=== PATIENT | female | born 1965 | race Caucasian/White ===

== ENCOUNTER 2016-08-01 18:05 | Emergency (ER) | payer BC ==
[2016-08-01 18:27] VITALS: BP 122/77
--- NOTE | 2016-08-01 18:44 | UC ---
Knee Pain HPI - HPI Summary HPI Summary: right knee pain x 2 days pain is in medial aspect of the right knee, no known injury pain is interment lasting for few seconds no swelling, mild erythema of the area - History of Current Complaint Chief Complaint: UCLowerExtremity Stated Complaint: RT KNEE PAIN Time Seen by Provider: 08/01/16 18:25 Hx Obtained From: Patient Hx Last Menstrual Period: Perimenopausal ?: No Onset/Duration: Gradual Onset, Lasting Days - 2, Still Present Severity Initially: Moderate Severity Currently: Moderate Aggravating Factor(s): Nothing Alleviating Factor(s): Nothing Associated Signs And Symptoms: Negative: Swelling, Redness, Bruising, Fever, Weakness, Numbness, Tingling - Allergies/Home Medications Allergies/Adverse Reactions: Allergies Allergy/AdvReac Type Severity Reaction Status Date / Time Penicillins Allergy Rash Verified 08/01/16 18:21 Home Medications: Home Medications NK [No Home Medications Reported] 08/01/16 [History Confirmed 08/01/16] PMH/Surg Hx/FS Hx/Imm Hx Previously Healthy: Yes - Surgical History Surgical History: Yes Surgery Procedure, Year, and Place: anal vaginal fistula - Family History Known Family History: Negative: Diabetes - Social History Alcohol Use: Rare Substance Use Type: None Smoking Status (MU): Light Every Day Tobacco Smoker Type: Cigarettes Amount Used/How Often: 5 ciagrettes daily Length of Time of Smoking/Using Tobacco: 34 Years Have You Smoked in the Last Year: Yes When Did the Patient Quit Smoking/Using Tobacco: has been cutting down - Immunization History Most Recent Influenza Vaccination: Not the Season Review of Systems Constitutional: Negative Skin: Negative Eyes: Negative ENT: Negative Musculoskeletal: Arthralgia - right knee pain All Other Systems Reviewed And Are Negative: Yes Physical Exam Triage Information Reviewed: Yes Appearance: Well-Appearing, No Pain Distress, Well-Nourished Vital Signs: Initial Vital Signs Temp 98.7 F 08/01/16 18:21 Pulse 96 08/01/16 18:21 Resp 18 08/01/16 18:21 BP 122/77 08/01/16 18:21 Pulse Ox 99 08/01/16 18:21 Eye Exam: Normal Eyes: Positive: Conjunctiva Clear ENT Exam: Normal ENT: Positive: Normal ENT inspection, Hearing grossly normal, Pharynx normal Neck exam: Normal Respiratory Exam: Normal Respiratory: Positive: Chest non-tender, Lungs clear, Normal breath sounds, No respiratory distress Cardiovascular: Positive: RRR, No Murmur, Pulses Normal Musculoskeletal: Positive: Other: - right knee: no swelling, no effusion , no tenderness, good ROM on flexion and extension ligaments are stable Knee Pain Course/Dx - Differential Dx/Diagnosis Provider Diagnoses: right knee pain Discharge - Discharge Plan Condition: Stable Disposition: HOME Patient Education Materials: Knee Pain (ED) Referrals: Non Staff,Doctor [Primary Care Provider] - 7 Days Additional Instructions: your exam is normal for any any ligament injury and normal for meniscus injury most likely sprain / strain or a pinch nerve cont. with rest , ice, elevation , may take ibuprofen as needed for pain follow up with your pcp in one week if not better
== END 2016-08-01 18:59 | disposition home or self-care (01) ==
LOC: UCCORT 18:05
DX: M25.561 Pain in right knee (principal); Z88.0 Allergy status to penicillin; F17.210 Nicotine dependence, cigarettes, uncomplicated
CPT/HCPCS: 99211; G0463

== ENCOUNTER 2017-01-25 14:14 | Emergency (ER) | payer BC ==
--- NOTE | 2017-01-25 14:55 | UC ---
Complaint Female HPI - HPI Summary HPI Summary: 51 y/o female presents to the urgent care c/o urinary frequency and suprapubic pressure since yesterday. Pt thinks she has a UTI since symptoms are similar. Pt has not taking anything to alleviate symptoms. She has noticed a mild white vaginal discharge for the past 3 days since she changed soap. Pt denies, pain, fever, lower back pain, abdominal pain, N/V/D. - History Of Current Complaint Stated Complaint: URINARY Time Seen by Provider: 01/25/17 14:44 Hx Obtained From: Patient Hx Last Menstrual Period: Perimenopausal ?: No Onset/Duration: Gradual Onset, Lasting Days - 1 day, Still Present Timing: Intermittent, Lasting Minutes Severity Initially: Mild Severity Currently: Mild Pain Intensity: 0 Pain Scale Used: 0-10 Numeric Character: Dull - pressure like Aggravating Factor(s): Urination Alleviating Factor(s): Nothing Associated Signs And Symptoms: Positive: Negative. Negative: Fever, Back Pain, Vaginal Bleeding/Discharge, Genital Swelling - Risk Factors Ectopic Risk Factor: Negative - Allergies/Home Medications Allergies/Adverse Reactions: Allergies Allergy/AdvReac Type Severity Reaction Status Date / Time Penicillins Allergy Rash Verified 01/25/17 14:57 PMH/Surg Hx/FS Hx/Imm Hx Previously Healthy: Yes - Pt denies PMHX - Surgical History Surgical History: Yes Surgery Procedure, Year, and Place: anal vaginal fistula - Family History Known Family History: Positive: None - Pt denies FMHX Negative: Diabetes - Social History Occupation: Employed Full-time Lives: With Family Alcohol Use: Rare Substance Use Type: None Smoking Status (MU): Light Every Day Tobacco Smoker Type: Cigarettes Amount Used/How Often: 5 ciagrettes daily Length of Time of Smoking/Using Tobacco: 34 Years Have You Smoked in the Last Year: Yes When Did the Patient Quit Smoking/Using Tobacco: has been cutting down - Immunization History Most Recent Influenza Vaccination: Not the 2015/2016 Season Review of Systems Constitutional: Negative Skin: Negative Eyes: Negative ENT: Negative Respiratory: Negative Cardiovascular: Negative Gastrointestinal: Negative Genitourinary: Frequency, Urgency Motor: Negative Neurovascular: Negative Musculoskeletal: Negative Neurological: Negative Psychological: Negative Is Patient Immunocompromised?: No All Other Systems Reviewed And Are Negative: Yes Physical Exam Triage Information Reviewed: Yes - Additional Comments VITAL SIGNS: Reviewed. GENERAL: Patient is a well developed and nourished female who is sitting comfortable in the examining table. Patient is not in any acute respiratory distress. HEAD AND FACE: No signs of trauma. No ecchymosis, hematomas or skull depressions. No sinus tenderness. EYES: PERRLA, EOMI x 2, No injected conjunctiva, clear watery eyes, no nystagmus. No photophobia. EARS: Hearing grossly intact. Ear canals and tympanic membranes are within normal limits. MOUTH: pharynx with no erythema, no exudates,no palatal petechiae. no B/L tonsillar enlargement Uvula in midline. NECK: Supple, trachea is midline, no lymphadenopathy, no JVD, no carotid bruit, no c-spine tenderness, neck with full ROM. CHEST: Symmetric, no tenderness at palpation LUNGS: Clear to auscultation bilaterally. No wheezing or crackles. CVS: Regular rate and rhythm, S1 and S2 present, no murmurs or gallops appreciated. ABDOMEN: Soft, non-tender. No signs of distention. No rebound no guarding, and no masses palpated. Bowel sounds are normal. BACK:no scoliosis or lesions, non tender to palaption, No B/L CVA tenderness EXTREMITIES: FROM in all major joints, no edema, no cyanosis or clubbing. NEURO: Alert and oriented x 3. No acute neurological deficits. Speech is normal and follows commands. SKIN: Dry and warm Complaint Female Dx - Course Course Of Treatment: 51 y/o female presents to the urgent care c/o urinary frequency and suprapubic pressure since yesterday. Pt thinks she has a UTI since symptoms are similar. Pt has not taking anything to alleviate symptoms. She has noticed a mild white vaginal discharge for the past 3 days since she changed soap. Pt denies, pain, fever, lower back pain, vaginal discharge, abdominal pain, N/V/D. Hx obtained. PE: WNL. UA and test ordered. UA results: trace of ketones. Pt declines pelvic examination. Pt with Dysuria and probably BV since she reently changed soaps. Pt Rx Pyridium 100mg PO TID x 2 days for Dysuria. Advised to increase fluid intake. Rx Metronidazole vaginal cream to Tx BV. Pt advised If symptoms do not improve to return to the urgent care or f/u with PCP. Pt understood and agreed. Left the clinic ambulating. - Differential Dx/Diagnosis Differential Diagnosis/HQI/PQRI: Cervicitis, Pelvic Inflammatory Disease, Ureteral Stone, Urinary Tract Infection, Other - dysuria Provider Diagnoses: 1- Dysuria. 2- Bacterial Vaginosis Discharge - Discharge Plan Condition: Stable Disposition: HOME Prescriptions: metroNIDAZOLE VAGINAL 0.75%* 1 applic VAGINAL BEDTIME #1 melissa Phenazopyridine TAB* [Pyridium 100 mg TAB*] 100 mg PO TID #6 tab Patient Education Materials: Bacterial Vaginosis (ED), Dysuria (ED) Referrals: [facility] [Outside] - If Needed Additional Instructions: 1- Please take Pyridium 100 mg PO TID x 2 days to alleviate urinary symptoms. Increase increase fluid intake. drink cranberry juice. 2-Apply Metronidazole topical cream as directed for Bacterial Vaginosis 3-If symptoms do not improve please return to the urgent care or f/u with PCP for further evaluation and treatment
[2017-01-25 14:57] VITALS: BP 106/70
== END 2017-01-25 15:31 | disposition home or self-care (01) ==
LOC: UCCORT 14:14
DX: N76.0 Acute vaginitis (principal); R30.0 Dysuria; Z88.0 Allergy status to penicillin; F17.210 Nicotine dependence, cigarettes, uncomplicated
CPT/HCPCS: 81003; 99212; G0463

== ENCOUNTER 2017-06-22 17:22 | Emergency (ER) | payer BC ==
[2017-06-22 17:49] VITALS: BP 124/84
[2017-06-22] MEDS ORDERED: Azithromycin TAB* 250 MG PO ONE (18:14)
[2017-06-22] MEDS ORDERED: Albuterol HFA INHALER* 8 gm MDI INH ONE (18:15)
--- NOTE | 2017-09-16 08:46 | UC ---
UC General HPI - HPI Summary HPI Summary: had a cold several weeks ago, sx resolved then reoccurred 4 days ago--c/o lingering cough, cough is productive of yellow phlegm, "slight wheezing" No GI issues. No rash. Not getting better, wants to get checked. - History of Current Complaint Chief Complaint: UCGeneralIllness Stated Complaint: UPPER RESPIRATORY Time Seen by Provider: 06/22/17 17:55 Hx Obtained From: Patient Hx Last Menstrual Period: Perimenopausal Pain Intensity: 0 - Allergy/Home Medications Allergies/Adverse Reactions: Allergies Allergy/AdvReac Type Severity Reaction Status Date / Time Penicillins Allergy Intermediate Rash Verified 06/22/17 17:49 PMH/Surg Hx/FS Hx/Imm Hx Previously Healthy: Yes - Surgical History Surgical History: Yes Surgery Procedure, Year, and Place: anal vaginal fistula - Family History Known Family History: Positive: None - Pt denies FMHX Negative: Diabetes - Social History Alcohol Use: None Substance Use Type: None Smoking Status (MU): Light Every Day Tobacco Smoker Type: Cigarettes Amount Used/How Often: 5 ciagrettes daily Length of Time of Smoking/Using Tobacco: 34 Years Have You Smoked in the Last Year: Yes When Did the Patient Quit Smoking/Using Tobacco: has been cutting down - Immunization History Most Recent Influenza Vaccination: Not the 2014/2015 Season Review of Systems Constitutional: Fatigue Skin: Negative Eyes: Negative ENT: Negative Respiratory: Cough Cardiovascular: Negative Gastrointestinal: Negative Genitourinary: Negative Motor: Negative Neurovascular: Negative Musculoskeletal: Negative Neurological: Negative Psychological: Negative Is Patient Immunocompromised?: No All Other Systems Reviewed And Are Negative: Yes Physical Exam Triage Information Reviewed: Yes Appearance: Well-Nourished Vital Signs: Initial Vital Signs Temp 98.5 F 06/22/17 17:40 Pulse 90 06/22/17 17:40 Resp 18 06/22/17 17:40 BP 124/84 06/22/17 17:40 Pulse Ox 98 06/22/17 17:40 Vital Signs Reviewed: Yes Eye Exam: Normal ENT: Positive: Pharyngeal erythema - mild post pharyng redness, no sores / exudates, TM dull Neck exam: Normal Neck: Positive: Supple, Nontender, No Lymphadenopathy Respiratory Exam: Other - + rhonchorus cough, scattered exp wheeze Respiratory: Positive: No respiratory distress, No accessory muscle use Cardiovascular Exam: Normal Cardiovascular: Positive: RRR, No Murmur, Brisk Capillary Refill Abdominal Exam: Normal Abdomen Description: Positive: Nontender Neurological Exam: Normal - moves x 4 exts, gait steady Psychological Exam: Normal - conversing easily and appropriately Skin Exam: Normal - no visible or reported rash Course/Dx - Course Course Of Treatment: Reviewed coa / tx plan. Questions as posed answered to the best of my ability. - Differential Dx - Multi-Symptom Provider Diagnoses: Bronchitis. wheezing Discharge - Sign-Out/Discharge Documenting (check all that apply): Patient Departure - Discharge Plan Condition: Stable Disposition: HOME Prescriptions: Albuterol HFA INHALER* [Ventolin HFA Inhaler*] 1 - 2 puff INH Q4H PRN #1 mdi PRN Reason: Wheezing Azithromycin TAB* [Zithromax TAB (Z-SHELBY) 250 mg #6 tabs] 250 mg PO DAILY #4 tab Patient Education Materials: Acute Bronchitis (ED), Wheezing (ED) Referrals: Reinaldo Olmedo MD [Primary Care Provider] - Additional Instructions: Follow up with Dr. Olmedo within the next month for respiratory recheck. Seek medical attention for worse or new problems in the meantime. Drink plenty of water. - Billing Disposition and Condition Condition: STABLE Disposition: Home
== END 2017-06-22 18:36 | disposition home or self-care (01) ==
LOC: UCCORT 17:22
DX: J40 Bronchitis, not specified as acute or chronic (principal); R06.2 Wheezing; Z88.0 Allergy status to penicillin; F17.210 Nicotine dependence, cigarettes, uncomplicated
CPT/HCPCS: 99212; A9270-GY; G0463

== ENCOUNTER 2017-12-24 13:33 | Emergency (ER) | payer BC ==
[2017-12-24 15:07] VITALS: BP 103/85
--- NOTE | 2017-12-24 15:26 | UC ---
Throat Pain/Nasal Coy HPI - HPI Summary HPI Summary: 52-year-old woman here with chest congestion chills sputum production for one week. Initially the sputum was clear. Now her sputum starting yellow getting darker. She's been taking [id number] preparations which helped briefly but then things are getting worse overall. No chest pain she is not a smoker. No fevers. - History of Current Complaint Chief Complaint: UCGeneralIllness Stated Complaint: COUGH,CONGESTION,ROCHA Time Seen by Provider: 12/24/17 15:12 Hx Last Menstrual Period: Perimenopausal Pain Intensity: 0 - Allergies/Home Medications Allergies/Adverse Reactions: Allergies Allergy/AdvReac Type Severity Reaction Status Date / Time Penicillins Allergy Intermediate Rash Verified 12/24/17 15:03 PMH/Surg Hx/FS Hx/Imm Hx Previously Healthy: Yes - Surgical History Surgical History: Yes Surgery Procedure, Year, and Place: anal vaginal fistula - Family History Known Family History: Positive: None - Pt denies FMHX Negative: Diabetes - Social History Alcohol Use: Rare Substance Use Type: None Smoking Status (MU): Former Smoker Type: Cigarettes Amount Used/How Often: 5 ciagrettes daily Length of Time of Smoking/Using Tobacco: 34 Years Have You Smoked in the Last Year: Yes When Did the Patient Quit Smoking/Using Tobacco: has been cutting down - Immunization History Most Recent Influenza Vaccination: Not the Season Review of Systems Constitutional: Negative Skin: Negative Eyes: Negative ENT: Sore Throat, Nasal Discharge, Sinus Congestion Respiratory: Cough Cardiovascular: Negative Gastrointestinal: Negative Motor: Negative Neurovascular: Negative Musculoskeletal: Negative Neurological: Negative Psychological: Negative Is Patient Immunocompromised?: No All Other Systems Reviewed And Are Negative: Yes Physical Exam Triage Information Reviewed: Yes Appearance: No Pain Distress, Well-Nourished, Ill-Appearing - MILD Vital Signs: Initial Vital Signs Temp 98 F 12/24/17 15:01 Pulse 92 12/24/17 15:01 Resp 16 12/24/17 15:01 BP 103/85 12/24/17 15:01 Pulse Ox 98 12/24/17 15:01 Vital Signs Reviewed: Yes Eye Exam: Normal Eyes: Positive: Conjunctiva Clear ENT: Positive: Pharyngeal erythema, Nasal congestion, Nasal drainage, TMs normal Neck exam: Normal Neck: Positive: Supple Respiratory: Positive: Lungs clear, Normal breath sounds, No respiratory distress Cardiovascular: Positive: RRR Musculoskeletal Exam: Normal Musculoskeletal: Positive: Strength Intact, ROM Intact Neurological Exam: Normal Neurological: Positive: Alert Psychological Exam: Normal Psychological: Positive: Age Appropriate Behavior Skin Exam: Normal Throat Pain/Nasal Course/Dx - Course Course Of Treatment: DISCUSSED VIRAL VERSES BACTERIAL INFECTION AND THE ROLE OF ANTIBIOTICS. THE PATIENT WISHES TO BE ON ANTIBIOTICS AT THIS TIME. - Differential Dx/Diagnosis Provider Diagnoses: BRONCHITIS Discharge - Sign-Out/Discharge Documenting (check all that apply): Patient Departure All imaging exams completed and their final reports reviewed: No Studies - Discharge Plan Condition: Stable Disposition: HOME Prescriptions: Azithromyxin SHELBY (NF) [Z-Shelby (Zithromax) 250 mg tabs #6] 2 tab PO .TODAY, THEN 1 DAILY #6 tab Patient Education Materials: Acute Bronchitis (ED) Referrals: Reinaldo Olmedo MD [Primary Care Provider] - Additional Instructions: FOLLOW UP WITH YOUR DOCTOR IF NOT COMPLETELY IMPROVED. GET RECHECKED FOR ANY WORSENING OF YOUR CONDITION OR QUESTIONS OR CONCERNS. - Billing Disposition and Condition Condition: STABLE Disposition: Home
== END 2017-12-24 15:39 | disposition home or self-care (01) ==
LOC: UCCORT 13:33
DX: J40 Bronchitis, not specified as acute or chronic (principal); Z87.891 Personal history of nicotine dependence; Z88.0 Allergy status to penicillin
CPT/HCPCS: 99212; G0463

== ENCOUNTER 2018-10-02 16:13 | Emergency (ER) | payer BC, OTHER ==
[2018-10-02 17:40] VITALS: BP 119/74
--- NOTE | 2018-10-02 18:07 | UC ---
Laceration HPI - HPI Summary HPI Summary: 53 year old female cut herself with a gill box tender on her left forearm. Denies numbness nor radiation of pain. - History Of Current Complaint Chief Complaint: UCLaceration Stated Complaint: WC - LEFT ARM LACERATION Time Seen by Provider: 10/02/18 17:34 Hx Obtained From: Patient Hx Last Menstrual Period: Perimenopausal Laceration Location: Arm - Left forearm Mechanism Of Injury: Sharp Trauma Pain Intensity: 0 - Allergies/Home Medications Allergies/Adverse Reactions: Allergies Allergy/AdvReac Type Severity Reaction Status Date / Time Penicillins Allergy Intermediate Rash Verified 10/02/18 17:36 Home Medications: Home Medications NK [No Home Medications Reported] 10/02/18 [History Confirmed 10/02/18] PMH/Surg Hx/FS Hx/Imm Hx Previously Healthy: Yes - Surgical History Surgical History: Yes Surgery Procedure, Year, and Place: anal vaginal fistula - Family History Known Family History: Positive: None - Pt denies FMHX Negative: Diabetes - Social History Alcohol Use: Rare Substance Use Type: None Smoking Status (MU): Heavy Every Day Tobacco Smoker Type: Cigarettes Amount Used/How Often: 1/2 PPD Length of Time of Smoking/Using Tobacco: 34 Years Have You Smoked in the Last Year: Yes When Did the Patient Quit Smoking/Using Tobacco: has been cutting down - Immunization History Most Recent Influenza Vaccination: Not the Season Review of Systems All Other Systems Reviewed And Are Negative: Yes Constitutional: Positive: Negative Skin: Positive: Negative Eyes: Positive: Negative ENT: Positive: Negative Respiratory: Positive: Negative Cardiovascular: Positive: Negative Gastrointestinal: Positive: Negative Genitourinary: Positive: Negative Motor: Positive: Negative Neurovascular: Positive: Negative Musculoskeletal: Positive: Negative Is Patient Immunocompromised?: No Physical Exam Triage Information Reviewed: Yes Appearance: Well-Appearing, No Pain Distress, Well-Nourished, Obese Vital Signs: Initial Vital Signs Temp 99.0 F 10/02/18 17:36 Pulse 85 10/02/18 17:36 Resp 16 10/02/18 17:36 BP 119/74 10/02/18 17:36 Pulse Ox 98 10/02/18 17:36 Vital Signs Reviewed: Yes Eye Exam: Normal Musculoskeletal: Positive: Strength Intact, ROM Intact Neurological Exam: Normal Skin: Positive: Other - 3 cm laceration left forearm Procedures - Laceration/Wound Repair 1 Location: upper extremity - left forearm Description: Linear - 3 cm Anesthesia: Local, 1.0%, Lido Betadine Prep?: Yes Irrigated w/ Saline (ccs): 500 Laceration/Wound Explored: clean, no foreign body removed Closure: Single Layer Suture Type: Prolene Number of Sutures: 4 Sterile Dressing Applied?: Yes Laceration Course/Dx - Diagnosis Provider Diagnosis: Open wound of forearm Discharge - Sign-Out/Discharge Documenting (check all that apply): Patient Departure All imaging exams completed and their final reports reviewed: No Studies - Discharge Plan Condition: Stable Disposition: HOME Patient Education Materials: Laceration (ED) Referrals: Reinaldo Olmedo MD [Primary Care Provider] - Additional Instructions: Keep wound clean and dry. Change bandage daily, cover with bacitracin and sterile bandage. Remove suture in 7-10 days. - Billing Disposition and Condition Condition: STABLE Disposition: Home
[2018-10-02] MEDS ORDERED: Lidocaine 1% MPF ** 5 ML VIAL INJ ONE (18:08)
== END 2018-10-02 18:52 | disposition home or self-care (01) ==
LOC: UCCORT 16:13
DX: S51.812A Laceration without foreign body of left forearm, initial encounter (principal); W26.0XXA Contact with knife, initial encounter; Y92.9 Unspecified place or not applicable; Z88.0 Allergy status to penicillin; F17.210 Nicotine dependence, cigarettes, uncomplicated
CPT/HCPCS: 12002; 99212; G0463

== ENCOUNTER 2018-10-11 18:31 | Emergency (ER) | payer BC ==
[2018-10-11 18:49] VITALS: BP 131/75
--- NOTE | 2018-10-11 19:05 | UC ---
HPI Wound/Suture Re-check - HPI Summary HPI Summary: HERE FOR SUTURE REMOVAL ON LEFT FOREARM. HAD SUTURES PLACED HERE ON 10/02/18. DENIES SEEING ANY INFECTION. - History Of Current Complaint Chief Complaint: UCGeneralIllness Stated Complaint: SUTURE REMOVAL Time Seen by Provider: 10/11/18 18:55 Hx Obtained From: Patient Hx Last Menstrual Period: Perimenopausal Onset/Duration: Resolved Severity: Mild Pain Intensity: 0 - Allergies/Home Medications Allergies/Adverse Reactions: Allergies Allergy/AdvReac Type Severity Reaction Status Date / Time Penicillins Allergy Intermediate Rash Verified 10/11/18 18:46 PMH/Surg Hx/FS Hx/Imm Hx Previously Healthy: Yes - Surgical History Surgical History: Yes Surgery Procedure, Year, and Place: anal vaginal fistula - Family History Known Family History: Positive: None - Pt denies FMHX Negative: Diabetes - Social History Alcohol Use: Rare Substance Use Type: None Smoking Status (MU): Heavy Every Day Tobacco Smoker Type: Cigarettes Amount Used/How Often: 1/2 PPD Length of Time of Smoking/Using Tobacco: 34 Years Have You Smoked in the Last Year: Yes When Did the Patient Quit Smoking/Using Tobacco: has been cutting down - Immunization History Most Recent Influenza Vaccination: Not the 2014/2015 Season Review of Systems All Other Systems Reviewed And Are Negative: Yes Skin: Positive: Other - healed laceration Is Patient Immunocompromised?: No Physical Exam Triage Information Reviewed: Yes Appearance: Well-Appearing, No Pain Distress, Well-Nourished Vital Signs: Initial Vital Signs Temp 98.3 F 10/11/18 18:46 Pulse 88 10/11/18 18:46 Resp 16 10/11/18 18:46 BP 131/75 10/11/18 18:46 Pulse Ox 99 10/11/18 18:46 Vital Signs Reviewed: Yes Eye Exam: Normal ENT Exam: Normal Dental Exam: Normal Neck exam: Normal Respiratory Exam: Normal Cardiovascular Exam: Normal Abdominal Exam: Normal Bowel Sounds: Positive: Present Musculoskeletal Exam: Normal Neurological Exam: Normal Psychological Exam: Normal Skin: Positive: Other - well healed laceration with 4 sutures Course/Dx - Course Course Of Treatment: hx obtained, exam performed ,meds reviewed, removed 4 sutures without difficulty. no sign of infection - Differential Dx - Laceration/Wound Differential Diagnoses: Suture Removal - Diagnosis Provider Diagnosis: Visit for suture removal Discharge - Sign-Out/Discharge Documenting (check all that apply): Patient Departure All imaging exams completed and their final reports reviewed: No Studies - Discharge Plan Condition: Stable Disposition: HOME Patient Education Materials: Stitches Removal (ED) Referrals: Reinaldo Olmedo MD [Primary Care Provider] - Additional Instructions: 1. keep clean and drya nd allow to finish healing - Billing Disposition and Condition Condition: STABLE Disposition: Home
== END 2018-10-11 19:06 | disposition home or self-care (01) ==
LOC: UCCORT 18:31
DX: Z48.02 Encounter for removal of sutures (principal); F17.210 Nicotine dependence, cigarettes, uncomplicated